=== PATIENT | male | born 1940 | race Two or more races ===

== ENCOUNTER 2017-12-01 10:39 | Outpatient (CLI) | payer OTHER | END 2017-12-01 10:44 | disposition home or self-care (01) | LOC: SONOGRAMA 10:39 | DX: K40.91 Unilateral inguinal hernia, without obstruction or gangrene, recurrent (principal) ==

== ENCOUNTER 2019-09-11 09:09 | Emergency (ER) | payer OTHER ==
[~2019-09-11] VITALS: Ht 170.2 cm; Wt 59.4 kg
[2019-09-11] MEDS ORDERED: SIMVASTATIN5 MG PO (09:38)
[2019-09-11] MEDS ORDERED: COZAAR25 MG PO (09:38)
[2019-09-11] MEDS ORDERED: FORTAMET500 MG PO (09:39)
[2019-09-11] MEDS ORDERED: TESSALON PERLE100 M1 PO (13:02)
[2019-09-11] MEDS ORDERED: ZITHROMAX500 MG PO (13:02)
[2019-09-11] MEDS ORDERED: TUSSI PRES-B L480 ML PO (13:02)
[2019-09-11] MEDS ORDERED: INTESTINEX680 M1 PO (13:10)
== END 2019-09-11 13:16 | disposition home or self-care (01) ==
LOC: ER 09:09
DX: B33.8 Other specified viral diseases (principal); B96.0 Mycoplasma pneumoniae [M. pneumoniae] as the cause of diseases classified elsewhere

== ENCOUNTER 2020-03-29 12:17 | Emergency (ER) | payer OTHER ==
[~2020-03-29] VITALS: Ht 170.2 cm; Wt 65.8 kg
[~2020-03-29 12:17] MED LIST: COZAAR25 MG PO; FORTAMET500 MG PO; INTESTINEX680 M1 PO; SIMVASTATIN5 MG PO; TESSALON PERLE100 M1 PO; TUSSI PRES-B L480 ML PO; ZITHROMAX500 MG PO
== END 2020-03-29 14:39 | disposition home or self-care (01) ==
LOC: ER 12:17
DX: R07.89 Other chest pain (principal); F06.4 Anxiety disorder due to known physiological condition

== ENCOUNTER 2020-11-26 08:04 | Emergency (ER) | payer OTHER ==
[~2020-11-26] VITALS: Ht 170.2 cm; Wt 63.5 kg
[2020-11-26] MEDS ORDERED: ANUSOL-HC30 G2 TOP (11:51)
== END 2020-11-26 13:15 | disposition home or self-care (01) ==
LOC: ER 08:04
DX: K64.4 Residual hemorrhoidal skin tags (principal); K62.5 Hemorrhage of anus and rectum

== ENCOUNTER 2022-11-30 14:47 | Emergency (ER) | payer OTHER ==
[~2022-11-30] VITALS: Ht 167.6 cm; Wt 59.4 kg
[~2022-11-30 14:47] MED LIST changes: +ANUSOL-HC30 G2 TOP
== END 2022-11-30 19:53 | disposition home or self-care (01) ==
LOC: ER 14:47
DX: J06.9 Acute upper respiratory infection, unspecified (principal); Z20.822 Contact with and (suspected) exposure to COVID-19

== ENCOUNTER 2023-02-08 12:32 | Emergency (ER) | payer OTHER ==
[~2023-02-08] VITALS: Ht 170.2 cm; Wt 61.2 kg
== END 2023-02-08 16:20 | disposition home or self-care (01) ==
LOC: ER 12:32
DX: R53.1 Weakness (principal)

== ENCOUNTER 2023-10-30 11:22 | Emergency (ER) | payer OTHER ==
[~2023-10-30] VITALS: Ht 165.1 cm; Wt 59.0 kg
[2023-10-30] MEDS ORDERED: PLAVIX75 MG (11:28)
[2023-10-30] MEDS ORDERED: ASPIRIN81 MG (11:28)
[2023-10-30] MEDS ORDERED: GRALISE600 MG (11:28)
[2023-10-30] MEDS ORDERED: PREGABALIN50 MG (11:28)
[2023-10-30] MEDS ORDERED: TOPROL XL50 M1 (11:28)
[2023-10-30] MEDS ORDERED: LIPITOR40 MG (11:29)
[2023-10-30] MEDS ORDERED: ISOSORBIDE DINI30 MG (11:29)
[2023-10-30] MEDS ORDERED: METFORMIN HCL1000 M3 (11:29)
[2023-10-30 12:52] LABS: PH,URINE 5.5 (5.0-8.0); URINE APPEARANCE Clear; URINE BILIRRUBIN Negative (NEGATIVE); URINE BLOOD Negative; URINE COLOR Yellow; URINE GLUCOSE Negative (NEGATIVE); URINE LEUKOCYTE Negative; URINE NITRATE Negative; URINE PROTEIN 30 (NEGATIVE); URINE UROBILINOGEN 0.2 E.U./dl
[2023-10-30 12:59] LABS: URINE EPITHELIAL CELLS 2.6 uL (0.0-38.8); URINE RBC 4.4 uL (0.0-20.8)
[2023-10-30 13:08] LABS: URINE BACTERIA 2.5 uL (0.0-1933)
[2023-10-30 13:23] LABS: CALCIUM 9.4 mg/dL (8.5-10.1); CREATININE SERUM 0.88 mg/dL (0.70-1.30); GFR 82.7; POTASSIUM 4.83 mEq/L (3.5-5.1)
[2023-10-30 17:38] LABS: HEMATOCRIT 34.5 % (39.0-48.0); HEMOGLOBIN 11.7 g/dL (13-16.00); MEAN CELL VOLUME 90.9 fL (80.0-100.00); MEAN CORPUSCULAR HEMOGLOBIN 30.8 pg (27.00-32.0); MEAN CORPUSCULAR HGB CONC 33.9 g/dl (32.0-36.0); PLATELET COUNT 260 K/uL (150-450); RED CELL DISTRIBUTION WIDTH 13.7 % (11.5-14.5)
[2023-10-30 18:07] LABS: INR 0.96; PROTHROMBIN TIME 10.1 SECONDS (9.0-11.5)
[2023-10-30 18:10] LABS: PARTIAL THROMBOPLASTIN TIME < 20.0 SECONDS (22.0-34.0)
== END 2023-10-30 18:43 | disposition home or self-care (01) ==
LOC: ER 11:22
PROVIDERS: General Practice
DX: R10.31 Right lower quadrant pain (principal); E11.9 Type 2 diabetes mellitus without complications; Z79.84 Long term (current) use of oral hypoglycemic drugs; K57.30 Diverticulosis of large intestine without perforation or abscess without bleeding
CPT/HCPCS: 36415; 74177; 96365; 96366; 99284; J2270; J2405; J3490; J7042